=== PATIENT | male | born 1970 | race Caucasian/White ===

== ENCOUNTER 2019-08-20 13:34 | Emergency (ER) | payer BC, MEDICAID ==
[~2019-08-20] VITALS: Ht 175.3 cm; Wt 146.0 kg
[2019-08-20 13:53] VITALS: BP 147/91
== END 2019-08-20 14:23 | disposition home or self-care (01) ==
LOC: ER 13:35
DX: S61.210D Laceration without foreign body of right index finger without damage to nail, subsequent encounter (principal); W26.0XXD Contact with knife, subsequent encounter
CPT/HCPCS: 99281